=== PATIENT | male | born 1990 | race Caucasian/White ===

== ENCOUNTER 2016-06-22 07:37 | Emergency (ER) | payer OTHER ==
[2016-06-22] MEDS ORDERED: LIDOCAINE PATCH 5% TOP STA (07:52)
[2016-06-22] MEDS ORDERED: LIDOCAINE PATCH 5% TOP ONE (08:15)
== END 2016-06-22 09:05 | disposition home or self-care (01) ==
DX: S29.9XXA Unspecified injury of thorax, initial encounter (principal); S39.92XA Unspecified injury of lower back, initial encounter; V00.311A Fall from snowboard, initial encounter; Y93.23 Activity, snow (alpine) (downhill) skiing, snowboarding, sledding, tobogganing and snow tubing; Y92.39 Other specified sports and athletic area as the place of occurrence of the external cause
CPT/HCPCS: 72070; 72100; 99283; A9270